=== PATIENT | male | born 1970 | race Caucasian/White ===

== ENCOUNTER 2018-01-13 22:06 | Emergency (ER) | payer OTHER ==
[~2018-01-13] VITALS: Ht 188 cm; Wt 102.1 kg
[2018-01-13] MEDS ORDERED: LAMICTAL100 MG PO (22:23)
[2018-01-13] MEDS ORDERED: MINIPRESS5 MG PO (22:24)
[2018-01-13] MEDS ORDERED: METOPROLOL SUC100 MG PO (22:25)
[2018-01-13] MEDS ORDERED: ATIVAN1 MG PO (23:15)
== END 2018-01-14 00:45 | disposition home or self-care (01) ==
LOC: ED 22:06
DX: F10.239 Alcohol dependence with withdrawal, unspecified (principal); F31.9 Bipolar disorder, unspecified; I10 Essential (primary) hypertension; F17.200 Nicotine dependence, unspecified, uncomplicated; Z88.8 Allergy status to other drugs, medicaments and biological substances; Z79.899 Other long term (current) drug therapy
CPT/HCPCS: 80053; 85025; 96365; 96366; 96375; 99283; G0480; J2060; J3411; J7030

== ENCOUNTER 2021-03-27 03:12 | Emergency (ER) | payer MEDICAID ==
[~2021-03-27] VITALS: Ht 188 cm; Wt 91.6 kg
[~2021-03-27 03:12] MED LIST: ATIVAN1 MG PO; LAMICTAL100 MG PO; METOPROLOL SUC100 MG PO; MINIPRESS5 MG PO
--- OUTSIDE RECORDS SUMMARY | 2021-03-27 03:16 | XMS ---
PreManage Notification: JF HOWARD [employer] Events No recent Security Events currently on file CRITERIA MET - [facility] - 3 Facilities in 90 Days - 6 ED Visits in 6 Months - PDMP - [facility] - 2 Visits in 30 Days CARE PROVIDERS FUNMI RUSS Nurse Practitioner: Family Current PHONE: [phone] Malvin has no Care Guidelines for this patient. Care History Medical/Surgical 08/30/2017 [facility] Pilonidal cyst without abscess / Psoriasis / HTN / Abdominal pain / Calculus of ureter Behavioral 08/30/2017 [facility] Anxiety / Bipolar disorder / Depression E.DJie VISIT COUNT (12 MO.) 3 [facility] - [place] 3 [facility] - [address] [place] Mc[place] TOTAL 7 NOTE: Visits indicate total known visits. ED/UCC VISIT TRACKING (12 MO.) 03/27/2021 03:[address] [facility] [place] TYPE: Emergency COMPLAINT: - UNABLE TO EAT 03/25/2021 21:58 [facility] [place] TYPE: Emergency DIAGNOSES: - Bipolar disorder, current episode manic without psychotic features, severe - Requesting Medications - Med Refill 03/24/2021 22:41 [facility] [place] TYPE: Emergency DIAGNOSES: - Mental health issues - Hypokalemia - Thrombocytopenia, unspecified - Med Refill - Bipolar disorder, current episode manic without psychotic features, mild - Mental Health Problem 12/28/2020 22:43 [facility] [place] TYPE: Emergency DIAGNOSES: - Acute pancreatitis without necrosis or infection, unspecified - abdominal swelling - Abdominal Pain 12/24/2020 16:37 [facility] [place] TYPE: Emergency DIAGNOSES: - Cellulitis - Cellulitis of umbilicus - Nausea; Bloating - Rash - Anxiety disorder, unspecified 12/17/2020 20:35 [facility] [place] TYPE: Emergency DIAGNOSES: - Generalized anxiety disorder - MENTAL HEALTH EVAL - Panic Attack - SEE NURSE - Acute stress reaction [facility] [place] [facility] DIAGNOSES: - Portal vein thrombosis - chest and abdominal pain - chest and abdomin pain - Chest Pain - Alcoholic cirrhosis of liver without ascites - Calculus of gallbladder without cholecystitis without obstruction - Calculus of kidney INPATIENT VISIT TRACKING (12 MO.) [facility] [place] [facility] DIAGNOSES: - Bipolar II disorder - Manic episode, unspecified - Bipolar disorder with severe rupesh (CMS/HCC) [email or web address]
[2021-03-27] MEDS ORDERED: COZAAR25 MG PO (03:52)
[2021-03-27] MEDS ORDERED: CLONAZEPAM0.5 MG PO (03:53)
[2021-03-27] MEDS ORDERED: ATIVAN0.5 MG PO (03:54)
[2021-03-27] MEDS ORDERED: LIPITOR10 MG (03:54)
[2021-03-27] MEDS ORDERED: LACTULOSE10 GM/15 M PO (04:03)
[2021-03-27] MEDS ORDERED: METOPROLOL SUC100 MG PO (04:27)
== END 2021-03-27 04:39 | disposition home or self-care (01) ==
LOC: ED 03:12
DX: R63.30 Feeding difficulties, unspecified (principal); I10 Essential (primary) hypertension; M10.9 Gout, unspecified; F17.200 Nicotine dependence, unspecified, uncomplicated; Z76.0 Encounter for issue of repeat prescription; Z88.2 Allergy status to sulfonamides; Z79.899 Other long term (current) drug therapy
CPT/HCPCS: 99281